=== PATIENT | female | born 1995 | race Caucasian/White ===

== ENCOUNTER 2022-09-16 18:55 | Emergency (ER) | payer OTHER ==
[2022-09-16 20:09] LABS: Bilirubin Neg (Negative); Blood, Urine Negative (Negative); Clarity Clear (Clear); Glucose, Urine (Dipstick) Normal (Negative); Ketone, Urine 5 mg/dL (Negative); Leukocyte Negative (Negative); Nitrite Negative (Negative); Protein, Urine (Dipstick) 15 mg/dl (Neg-Trace); Specific Gravity, Urine 1.025 (1.005-1.030); Urobilinogen Normal mg/dL (Less than 2)
[2022-09-16 20:17] LABS: Bacteria/HPF None Seen HPF (None Seen); CAUTI Indications for Culture Pregnancy; RBC/HPF None Seen HPF (0-3); Squamous Epithelial None Seen HPF (0-3); WBC/HPF None Seen HPF (0-3)
[2022-09-16 20:18] LABS: Urine Culture Reflex Yes Yes
[2022-09-16 20:43] LABS: #Eosinphils 0.1 10x3/uL (0.0-0.5); #Monocytes 0.7 10x3/uL (0.0-1.1); #Neutrophils 5.8 10x3/uL (1.5-8.4); %Basophils 0.2 % (0.0-2.0); %Eosinophils 0.6 % (0.0-6.0); %Lymphocytes 25.1 % (18.0-47.0); %Neutrophils 65.5 % (40.0-75.0); Mean Corpuscular HGB CONC 34.8 g/dL (32.0-36.0); Mean Corpuscular Hemoglobin 32.4 pg (27.0-33.0); Mean Corpuscular Volume 93.2 fl (81.6-98.3); Platelet Count 255 10x3/uL (150-450); RBC Distribution Width 14.6 % (11.5-14.5); Red Blood Cell (RBC) Count 3.39 10x6/uL (3.90-5.03); White Blood Cell (WBC) Count 8.9 10x3/uL (3.5-10.5)
[2022-09-16 20:56] LABS: ALT (SGPT) 7 U/L (8-55); AST (SGOT) 11 U/L (5-34); Albumin 3.4 g/dL (3.5-5.0); Alkaline Phosphatase 75 U/L (40-110); Anion Gap 13 mmol/L (10-20); BUN (Urea Nitrogen) 12 mg/dL (7.0-18.7); Bilirubin, Total 0.2 mg/dL (0.2-1.2); Calc. Creatinine Clearance 0 mL/min (70-130); Calcium 9.1 mg/dL (7.8-10.44); Carbon Dioxide 23 mmol/L (22-29); Chloride 105 mmol/L (98-107); Estimated GFR 111; Globulin 3.1 g/dL (2.4-3.5); Glucose 79 mg/dL (70-105); Potassium 3.6 mmol/L (3.5-5.1); Protein, Total 6.5 g/dL (6.0-8.3); Sodium 137 mmol/L (136-145)
== END 2022-09-16 22:20 | disposition home or self-care (01) ==
LOC: CSHERS 18:55
DX: O99.891 Other specified diseases and conditions complicating pregnancy (principal); R42 Dizziness and giddiness; Z3A.19 19 weeks gestation of pregnancy
CPT/HCPCS: 80053; 81001; 85025; 87086; 93005; 96360

== ENCOUNTER 2022-10-13 15:33 | Day surgery (SDC) | payer OTHER ==
[2022-10-13 16:30] VITALS: BMI 22.8
== END 2022-10-13 17:10 | disposition home or self-care (01) ==
LOC: CSHLD/OP 15:33
PROVIDERS: ATTEND Family Medicine
DX: O36.8120 Decreased fetal movements, second trimester, not applicable or unspecified (principal); O34.211 Maternal care for low transverse scar from previous cesarean delivery; O99.332 Smoking (tobacco) complicating pregnancy, second trimester; F17.210 Nicotine dependence, cigarettes, uncomplicated; Z79.899 Other long term (current) drug therapy; Z91.018 Allergy to other foods; Z88.0 Allergy status to penicillin; Z3A.25 25 weeks gestation of pregnancy
CPT/HCPCS: 99282

== ENCOUNTER 2022-11-09 14:47 | Day surgery (SDC) | payer OTHER ==
[2022-11-09] MEDS ORDERED: hydrALAZINE 20 MG/ML VIAL SLOW IVP PRN (16:00)
== END 2022-11-09 16:50 | disposition home or self-care (01) ==
LOC: CSHLD/OP 14:47
PROVIDERS: ATTEND Family Medicine
DX: O36.8130 Decreased fetal movements, third trimester, not applicable or unspecified (principal); O34.211 Maternal care for low transverse scar from previous cesarean delivery; Z88.0 Allergy status to penicillin; Z91.018 Allergy to other foods; Z3A.29 29 weeks gestation of pregnancy
CPT/HCPCS: 76815; 99282

== ENCOUNTER 2022-12-03 22:08 | Emergency (ER) | payer OTHER | END 2022-12-04 01:48 | disposition home or self-care (01) | LOC: CSHERS 22:08 | DX: O9A.212 Injury, poisoning and certain other consequences of external causes complicating pregnancy, second trimester (principal); S56.113A Strain of flexor muscle, fascia and tendon of right middle finger at forearm level, initial encounter; W22.8XXA Striking against or struck by other objects, initial encounter; Y93.89 Activity, other specified; Z3A.19 19 weeks gestation of pregnancy ==

== ENCOUNTER 2023-01-17 11:48 | Outpatient (CLI) | payer OTHER | END 2023-01-17 11:49 | disposition home or self-care (01) | LOC: CSHLAB 11:48 | PROVIDERS: ATTEND Family Medicine | DX: Z01.812 Encounter for preprocedural laboratory examination (principal); O34.219 Maternal care for unspecified type scar from previous cesarean delivery; Z53.9 Procedure and treatment not carried out, unspecified reason | CPT/HCPCS: 85014; 85018; 85049; 86780; 86850; 86870; 86900; 86901; 87340 ==

== ENCOUNTER 2023-01-20 09:47 | Inpatient (IN) | payer OTHER ==
[2023-01-17 13:10] LABS: Hematocrit 37.3 % (34.9-44.5); Hemoglobin 12.6 g/dL (12.0-15.5); Platelet Count 296 10x3/uL (150-450)
[2023-01-17 13:53] LABS: Syphilis Antibody Nonreactive (Nonreactive); Syphilis Antibody Index 0.06 S/CO (<1.00 Non-Reactive)
[2023-01-17 13:54] LABS: HBSAg Index 0.23 S/CO (0-0.99); Hep B Surf Ag Non-Reactive S/CO (NonReactive)
[2023-01-20] MEDS ORDERED: Meperidine HCl/PF 25 MG/ML VIAL SLOW IVP PRN (10:23)
[2023-01-20] MEDS ORDERED: Promethazine HCl 25 MG SUPP PR PRN (10:23)
[2023-01-20] MEDS ORDERED: Ondansetron PF 4 MG/2 ML Vial IVP PRN ×4 (10:23→16:04)
[2023-01-20] MEDS ORDERED: diphenhydrAMINE 50 MG/ML VIAL IVP PRN (10:23)
[2023-01-20] MEDS ORDERED: fentaNYL 50 mcg/mL 1 mL Vial SLOW IVP PRN (10:23)
[2023-01-20] MEDS ORDERED: Ketorolac Tromethamine 30 MG/ML VIAL IVP PRN (10:23)
[2023-01-20] MEDS ORDERED: Moisturizing Cream (Eucerin) 113 GM JAR TOP PRN (10:23)
[2023-01-20] MEDS ORDERED: HYDROmorphone 0.5 MG/0.5 ML SYRINGE SLOW IVP PRN (10:23)
[2023-01-20] MEDS ORDERED: Naloxone HCl 0.4 mg/ml Vial IVP PRN ×2 (10:23)
[2023-01-20] MEDS ORDERED: Promethazine HCl 25 MG/ML VIAL IM PRN ×3 (10:23→16:04)
[2023-01-20] MEDS ORDERED: Naloxone HCl 0.4 mg/ml Vial IV PRN (10:23)
[2023-01-20] MEDS ORDERED: Ondansetron PF 4 MG/2 ML Vial ONE (10:29)
[2023-01-20] MEDS ORDERED: Dexamethasone 4 mg/ml Vial ONE (10:29)
[2023-01-20] MEDS ORDERED: Oxytocin 10 UNITS/ML VIAL ONE ×2 (10:29→12:25)
[2023-01-20] MEDS ORDERED: Phenylephrine 10 MG/ML VIAL ONE (10:29)
[2023-01-20] MEDS ORDERED: Ketorolac Tromethamine 30 MG/ML VIAL IVP SCH (10:30)
[2023-01-20] MEDS ORDERED: Communication Order-Pharmacy FS SCH (10:30)
[2023-01-20] MEDS ORDERED: PHENYLEPHRINE-NS 100 MCG/ML 10 ML SYRINGE ONE (10:35)
[2023-01-20 11:08] VITALS: BMI 27.2
[2023-01-20] MEDS ORDERED: hydrALAZINE 20 MG/ML VIAL SLOW IVP PRN ×2 (11:09→16:04)
[2023-01-20] MEDS ORDERED: CEFAZOLIN 2 GM in Sodium Chloride 0.9% 100 ML IVPB SCH (11:09)
[2023-01-20] MEDS ORDERED: Tranexamic Acid 1,000 MG/10 ML VIAL IVP PRN (11:09)
[2023-01-20] MEDS ORDERED: Misoprostol 200 MCG TAB PR PRN (11:09)
[2023-01-20] MEDS ORDERED: Oxytocin 30 units/NS 500 ML 500 ML IV SCH (11:09)
[2023-01-20] MEDS ORDERED: Lactated Ringer's 1,000 ML IV SCH (11:09)
[2023-01-20] MEDS ORDERED: Famotidine/PF 20 mg/2ml Vial SLOW IVP PRN (11:09)
[2023-01-20] MEDS ORDERED: Diphenoxylate HCl/Atropine Tablet PO PRN (11:09)
[2023-01-20] MEDS ORDERED: Methylergonovine 0.2 MG/ML VIAL IM PRN (11:09)
[2023-01-20] MEDS ORDERED: Bicitra 30 ML UDCUP PO PRN (11:09)
[2023-01-20] MEDS ORDERED: Carboprost 250 MCG/ML AMP IM PRN (11:09)
[2023-01-20] MEDS ORDERED: Morphine PF 10 MG/10 ML VIAL ONE (11:34)
[2023-01-20] MEDS ORDERED: fentaNYL 50 mcg/mL 1 mL Vial ONE (11:34)
[2023-01-20] MEDS ORDERED: Bisacodyl 10 MG SUPP PR PRN (16:04)
[2023-01-20] MEDS ORDERED: diphenhydrAMINE 25 MG CAP PO PRN (16:04)
[2023-01-20] MEDS ORDERED: Meperidine HCl/PF 25 MG/ML VIAL IM PRN (16:04)
[2023-01-20] MEDS ORDERED: Lanolin Ointment 7 GM TUBE TOP PRN (16:04)
[2023-01-20] MEDS: Ketorolac Tromethamine 30 MG/ML VIAL IVP SCH ×2 (17:46→23:40)
[2023-01-20] MEDS: Ferrous Sulfate 325 MG TAB PO SCH (21:11)
[2023-01-20] MEDS: Docusate 100 MG CAP PO SCH (21:24)
[2023-01-21 03:48] LABS: Hematocrit 31.3 % (34.9-44.5); Hemoglobin 10.7 g/dL (12.0-15.5); Mean Corpuscular HGB CONC 34.2 g/dL (32.0-36.0); Mean Corpuscular Hemoglobin 30.5 pg (27.0-33.0); Mean Corpuscular Volume 89.2 fl (81.6-98.3); Mean Platelet Volume 10.7 fl (7.4-10.4); Platelet Count 249 10x3/uL (150-450); RBC Distribution Width 13.2 % (11.5-14.5); Red Blood Cell (RBC) Count 3.51 10x6/uL (3.90-5.03); White Blood Cell (WBC) Count 12.3 10x3/uL (3.5-10.5)
[2023-01-21] MEDS: HYDROcodone/Acetaminophen 5/325 mg Tablet PO PRN ×5 (04:41→23:56)
[2023-01-21] MEDS: Ketorolac Tromethamine 30 MG/ML VIAL IVP SCH (06:15)
[2023-01-21] MEDS: Ferrous Sulfate 325 MG TAB PO SCH ×2 (07:37→21:50)
[2023-01-21] MEDS: Docusate 100 MG CAP PO SCH ×2 (08:25→21:47)
[2023-01-21] MEDS: Prenatal Vitamin 1 TAB PO SCH (08:25)
[2023-01-21] MEDS ORDERED: Boostrix 0.5 ML (Tdap) VIAL (>/=7 yrs of age) IM ONE (09:00)
[2023-01-21] MEDS: Ibuprofen 800 MG TAB PO SCH ×2 (13:51→21:47)
[2023-01-22] MEDS: HYDROcodone/Acetaminophen 5/325 mg Tablet PO PRN ×4 (03:55→18:27)
[2023-01-22] MEDS: Ibuprofen 800 MG TAB PO SCH ×3 (06:07→21:29)
[2023-01-22] MEDS: Prenatal Vitamin 1 TAB PO SCH (09:06)
[2023-01-22] MEDS: Ferrous Sulfate 325 MG TAB PO SCH ×2 (09:06→21:27)
[2023-01-22] MEDS: Docusate 100 MG CAP PO SCH ×2 (09:06→21:29)
[2023-01-22] MEDS: Simethicone Chewable 80 MG TAB PO PRN (13:13)
[2023-01-22] MEDS ORDERED: Milk Of Magnesia 30 ML UDCUP PO SCH (21:00)
[2023-01-23] MEDS: Ibuprofen 800 MG TAB PO SCH ×2 (05:10→13:58)
[2023-01-23] MEDS: HYDROcodone/Acetaminophen 5/325 mg Tablet PO PRN ×4 (05:10→18:05)
[2023-01-23 08:04] VITALS: BP 116/82; TEMP 98.2
[2023-01-23] MEDS: Ferrous Sulfate 325 MG TAB PO SCH (09:13)
[2023-01-23] MEDS: Prenatal Vitamin 1 TAB PO SCH (09:18)
[2023-01-23] MEDS: Docusate 100 MG CAP PO SCH (09:18)
[2023-01-23] MEDS: Simethicone Chewable 80 MG TAB PO PRN ×2 (10:39→18:06)
== END 2023-01-23 19:40 | disposition home or self-care (01) | DRG 787 ==
LOC: CSHLD 09:47 → CSHPP 15:16
PROVIDERS: ADMIT Family Medicine; ATTEND Family Medicine
PROC: 3E0234Z Introduction of Serum, Toxoid and Vaccine into Muscle, Percutaneous Approach (ICD-10-PCS; 2023-01-17)
PROC: 10D00Z1 Extraction of Products of Conception, Low, Open Approach (ICD-10-PCS; principal; 2023-01-21)
DX: O34.211 Maternal care for low transverse scar from previous cesarean delivery (principal); O36.0130 Maternal care for anti-D [Rh] antibodies, third trimester, not applicable or unspecified; Z3A.39 39 weeks gestation of pregnancy; Z37.0 Single live birth; Z91.018 Allergy to other foods; Z88.0 Allergy status to penicillin
CPT/HCPCS: 36415; 51702; 85014; 85018; 85027; 85049; 86780; 86850; 86870; 86900; 86901; 87340; J1100; J1885; J2274; J2370; J2405; J2590; J3010